=== PATIENT | female | born 1985 | race Caucasian/White ===

== ENCOUNTER 2019-10-12 17:56 | Emergency (ER) | payer OTHER ==
[~2019-10-12] VITALS: Ht 165.1 cm; Wt 72.6 kg
== END 2019-10-12 18:54 | disposition home or self-care (01) ==
LOC: ED 17:56
DX: T63.481A Toxic effect of venom of other arthropod, accidental (unintentional), initial encounter (principal); Z91.048 Other nonmedicinal substance allergy status
CPT/HCPCS: 99283